=== PATIENT | female | born 1940 | race Caucasian/White ===

== ENCOUNTER 2022-06-10 15:47 | Emergency (ER) | payer MEDICARE, BC ==
[~2022-06-10] VITALS: Ht 160 cm; Wt 63.5 kg
[2022-06-10 15:59] VITALS: BP 182/72
[2022-06-10 16:01] VITALS: BP 147/70
[2022-06-10 17:01] VITALS: BP 139/58
[2022-06-10 17:30] VITALS: BP 145/62
[2022-06-10 17:43] VITALS: BP 145/62
== END 2022-06-10 17:48 | disposition home or self-care (01) ==
LOC: ED 15:47
DX: S00.03XA Contusion of scalp, initial encounter (principal); I10 Essential (primary) hypertension; E78.5 Hyperlipidemia, unspecified; W01.0XXA Fall on same level from slipping, tripping and stumbling without subsequent striking against object, initial encounter; Y92.008 Other place in unspecified non-institutional (private) residence as the place of occurrence of the external cause

== ENCOUNTER 2023-03-18 08:37 | Emergency (ER) | payer MEDICARE, BC ==
[~2023-03-18] VITALS: Ht 160 cm; Wt 65.0 kg
[~2023-03-18 08:37] MED LIST: D31000 UNIT PO; DIPHENHYDRAMINE25 MG PO; LEVOTHYROXIN75 MCG PO; LIPITOR20 M1 PO; LOSARTAN POTAS100 MG PO; METAMUCIL28 % PO; MIRALAX17 GM/SCOO; NORVASC10 M1 PO; PROTONIX40 M2 PO; SPIRONOLACT25 MG PO; TUMERIC; VIT B COMPLEX PO; VIT C/ACEROL500 M1 PO; ZINC50 M1 PO; [UNRECOGNIZED DRUG - OTHER]
[2023-03-18 08:53] VITALS: BP 137/57
[2023-03-18 09:00] VITALS: BP 133/59
[2023-03-18 09:15] LABS: URINE BILIRUBIN - DIPSTICK NEGATIVE (NEGATIVE); URINE BLOOD DIPSTICK LARGE (NEGATIVE); URINE COLOR YELLOW; URINE GLUCOSE - DIPSTICK NEGATIVE (NEGATIVE); URINE KETONE NEGATIVE (NEGATIVE); URINE LEUK ESTERASE MODERATE (NEGATIVE); URINE NITRITE - DIPSTICK NEGATIVE (Negative); URINE PROTEIN - DIPSTICK TRACE mg/dL (NEG-TRACE); URINE SPECIFIC GRAVITY <=1.005; URINE UROBILINOGEN - DIPSTICK 0.2 E.U./dL (0.2)
[2023-03-18 09:20] LABS: URINE BACTERIA FEW hpf; URINE RBC 25-50 RBC/hpf (0-5)
[2023-03-18] MEDS ORDERED: CEFDINIR300 MG PO (09:20)
[2023-03-18 09:23] VITALS: BP 133/59
== END 2023-03-18 09:30 | disposition home or self-care (01) ==
LOC: ED 08:37
PROVIDERS: Family Medicine
DX: N39.0 Urinary tract infection, site not specified (principal); B96.20 Unspecified Escherichia coli [E. coli] as the cause of diseases classified elsewhere; C50.919 Malignant neoplasm of unspecified site of unspecified female breast; I10 Essential (primary) hypertension; E78.5 Hyperlipidemia, unspecified

== ENCOUNTER 2023-06-11 14:18 | Emergency (ER) | payer MEDICARE, BC ==
[~2023-06-11] VITALS: Ht 160 cm; Wt 61.0 kg
[~2023-06-11 14:18] MED LIST changes: +CEFDINIR300 MG PO
[2023-06-11 15:23] LABS: URINE BILIRUBIN - DIPSTICK Negative (NEGATIVE); URINE BLOOD DIPSTICK Moderate (NEGATIVE); URINE COLOR Light yellow; URINE GLUCOSE - DIPSTICK Negative (NEGATIVE); URINE KETONE Negative (NEGATIVE); URINE NITRITE - DIPSTICK Negative (Negative); URINE PH 6.5 (4.5-8.0); URINE PROTEIN - DIPSTICK 30 mg/dL (NEG-TRACE); URINE SPECIFIC GRAVITY <=1.005; URINE UROBILINOGEN - DIPSTICK 0.2 E.U./dL (0.2)
[2023-06-11 15:24] VITALS: BP 147/64
[2023-06-11 15:27] LABS: URINE LEUK ESTERASE Large (NEGATIVE)
[2023-06-11 15:30] VITALS: BP 133/61
[2023-06-11 15:34] LABS: URINE WBC 20-50 WBC/hpf (0-5)
[2023-06-11 15:45] VITALS: BP 137/67
[2023-06-11 16:00] VITALS: BP 152/68
[2023-06-11 16:17] VITALS: BP 176/67
[2023-06-11] MEDS ORDERED: DOXYCYCLINE100 MG PO (16:23)
[2023-06-11 16:32] VITALS: BP 176/67
== END 2023-06-11 16:32 | disposition home or self-care (01) ==
LOC: ED 14:18
PROVIDERS: Family Medicine
DX: N39.0 Urinary tract infection, site not specified (principal); B96.20 Unspecified Escherichia coli [E. coli] as the cause of diseases classified elsewhere; I10 Essential (primary) hypertension; E78.5 Hyperlipidemia, unspecified